=== PATIENT | female | born 1960 | race Caucasian/White ===

== ENCOUNTER → 2017-11-04 | Outpatient (CLI) | payer BC ==
[~2017-11-04] MED LIST: CEPHALEXIN500 M1 PO; CLIMARA 0.1 PATCH.WK TD; NO HOME MEDICATIONS; NORCO 325 MG-51 TAB PO; REGLAN 5MG T5 MG/TAB PO; ZOFRAN ODT4 MG PO
== END ==
LOC: MC.RAD 14:20
DX: Z12.31 Encounter for screening mammogram for malignant neoplasm of breast (principal)

== ENCOUNTER → 2019-11-22 | Outpatient (CLI) | payer BC | LOC: MC.RAD 15:52 | DX: Z12.31 Encounter for screening mammogram for malignant neoplasm of breast (principal) ==

== ENCOUNTER 2020-12-11 14:15 | Emergency (ER) | payer BC ==
[~2020-12-11] VITALS: Ht 167.6 cm; Wt 90.9 kg
[2020-12-11 14:25] VITALS: TEMP 97.4
[2020-12-11 14:43] LABS: BASO % 0.8 % (0.0-2.0); EOS # 0.1 (0.0-0.7); EOS % 1.9 % (0-4.0); GRAN # 2.5 (1.4-6.5); GRAN % 50.6 % (42.2-75.2); HEMATOCRIT 39.7 % (37.0-47.0); HEMOGLOBIN 13.7 g/dl (12.5-16.0); LYMPH # 1.9 (1.2-3.4); LYMPH % 39.5 % (20.0-51.0); MEAN CELL VOLUME 94 fl (80.0-100.0); MEAN CORPUSCULAR HEMOGLOBIN 32 pg (27.0-31.0); MEAN CORPUSCULAR HGB CONC 35 g/dl (33.0-37.0); MEAN PLATELET VOLUME 10.2 fl (7.4-10.4); MONO # 0.3 (0.1-0.6); PLATELET COUNT 205 K/mm3 (130-400); RED BLOOD COUNT 4.24 M/mm3 (4.10-5.30); REDCELL DISTRIBUTION WIDTH-CV 12.4 % (11.5-14.5)
[2020-12-11] MEDS ORDERED: PRIL40 PO (14:43)
[2020-12-11] MEDS ORDERED: ONE-A-DAY ESSE1 EACH PO (14:45)
[2020-12-11] MEDS ORDERED: ZYRTEC 10MG10 MG PO (14:45)
[2020-12-11 15:00] LABS: ALANINE AMINOTRANSFERASE 36 U/L (4-34); ALBUMIN 4.1 gm/dL (3.5-5.0); ALKALINE PHOSPHATASE 111 U/L (50-136); ANION GAP 7 mmol/L (7-16); AST,SGOT 35 U/L (15-37); BILIRUBIN,TOTAL 0.5 mg/dL (0.0-1.0); BLOOD UREA NITROGEN 13 mg/dL (7-17); C-REACTIVE PROTEIN 0.6 mg/dL (0.0-0.9); CALCIUM 9.1 mg/dL (8.4-10.2); CARBON DIOXIDE 28 mmol/L (22-30); CHLORIDE 104 mmol/L (98-107); CREATININE, serum 0.58 (0.52-1.25); GLUCOSE 101 mg/dL (74-106); LIPASE 104 U/L (23-300); POTASSIUM 3.8 mmol/L (3.4-5.0); SODIUM 139 mmol/L (137-145); TOTAL PROTEIN 7.1 gm/dL (6.4-8.2)
[2020-12-11 15:13] LABS: TROPONIN-I < 0.012 ng/mL (0.000-0.035)
[2020-12-11 16:13] LABS: COLLECTION METHOD CLEAN CATCH
[2020-12-11 16:19] LABS: PH 6 (5-8); SQUAMOUS EPITHELIAL None Seen /hpf; URINE APPEARANCE Clear; URINE BACTERIA None Seen /hpf; URINE BILIRUBIN Negative (NEGATIVE); URINE BLOOD Negative (NEGATIVE); URINE COLOR Straw; URINE GLUCOSE Negative (NEGATIVE); URINE KETONE Trace (NEGATIVE); URINE LEUKOCYTE ESTERASE Negative (NEGATIVE); URINE NITRATE Negative (NEGATIVE); URINE PROTEIN(semi-quant) Negative (NEGATIVE); URINE RBC None Seen /hpf; URINE UROBILINOGEN Negative (NEGATIVE)
[2020-12-11] MEDS ORDERED: NORCO 325 MG-51 TAB PO (16:35)
[2020-12-11 17:09] VITALS: BP 141/77; PULSE 62
== END 2020-12-11 17:10 | disposition home or self-care (01) ==
LOC: COL.ER 14:15
PROVIDERS: Family Medicine
DX: R10.13 Epigastric pain (principal)
CPT/HCPCS: C9113; J1170; J2405; J7120

== ENCOUNTER → 2021-01-06 | Outpatient (CLI) | payer BC ==
[~2021-01-06] MED LIST changes: +ONE-A-DAY ESSE1 EACH PO; +PRIL40 PO; +ZYRTEC 10MG10 MG PO
== END ==
LOC: MC.RAD 07:38
DX: Z12.31 Encounter for screening mammogram for malignant neoplasm of breast (principal); N63.14 Unspecified lump in the right breast, lower inner quadrant

== ENCOUNTER → 2021-01-08 | Outpatient (CLI) | payer BC | LOC: MC.RAD 06:53 | DX: N60.01 Solitary cyst of right breast (principal); N63.10 Unspecified lump in the right breast, unspecified quadrant ==

== ENCOUNTER → 2022-11-22 | Outpatient (CLI) | payer BC | LOC: MC.RAD 09:00 | DX: Z12.31 Encounter for screening mammogram for malignant neoplasm of breast (principal) ==

== ENCOUNTER → 2024-01-18 | Outpatient (CLI) | payer BC | LOC: MC.RAD 09:25 | DX: Z12.31 Encounter for screening mammogram for malignant neoplasm of breast (principal) ==